=== PATIENT | male | born 2000 | race Two or more races ===

== ENCOUNTER 2024-08-12 10:54 | Emergency (ER) | payer SELFPAY ==
[2024-08-12 11:44] VITALS: BP 124/69; PULSE 93; RESP 18; TEMP 98.1; BMI 21.9
[2024-08-12] MEDS ORDERED: BACITRACIN ZINC 15 GM TUBE TOPICAL OINTMENT ONE ×2 (11:51→11:52)
[2024-08-12] MEDS ORDERED: morphine CARPU-JECT 4 MG/1 ML DISP.SYRIN IVPUSH ONE (11:57)
[2024-08-12] MEDS ORDERED: ACETAMINOPHEN 1000 MG/100 ML BAG IVPB ONE (11:57)
[2024-08-12] MEDS ORDERED: LORazepam 2 MG/ML SDV VIAL ONE ×2 (11:58→12:04)
[2024-08-12] MEDS ORDERED: VANCOMYCIN 1,000 MG in DEXTROSE 5%-WATER - 250 ML IVPB ONE (12:01)
[2024-08-12] MEDS ORDERED: CEFTRIAXONE 1 GM in DEXTROSE 5%-WATER - 100 ML IVPB ONE (12:01)
[2024-08-12] MEDS ORDERED: CEFTRIAXONE 1 G/50 ML PREMIX 50 ML IVPB ONE (12:04)
[2024-08-12] MEDS ORDERED: ACETAMINOPHEN INJECTION 100 ML ONE (12:04)
[2024-08-12] MEDS ORDERED: LACTATED RINGERS SOLUTION 1000 ML INFUS.BAG IV ONE (12:05)
== END 2024-08-12 12:31 | disposition left against medical advice (07) ==
LOC: JER 10:54
DX: L30.9 Dermatitis, unspecified (principal); R45.6 Violent behavior; R21 Rash and other nonspecific skin eruption
CPT/HCPCS: 99283-25

== ENCOUNTER 2024-09-01 21:01 | Inpatient (IN) | payer BC, OTHER ==
[2024-09-02] MEDS ORDERED: ACETAMINOPHEN 325 MG TABLET (FP) ONE (00:22)
[2024-09-02] MEDS: ACETAMINOPHEN 500 MG TABLET (FP) PO ONE (00:30)
[2024-09-02 00:40] LABS: BASO % 0.6 % (0-2.0); EOS % 9.9 % (0-4.5); HEMATOCRIT 35.6 % (35.4-49); HEMOGLOBIN 11.6 GM/dL (11.7-16.9); LYMPH % 13.8 % (8-40); MCHC 32.5 g/dl (32.0-35.9); MEAN CELL VOLUME 80.1 fl (80-96); MEAN PLT VOLUME 7.4 fl (7.5-11.1); MONO % 9.2 % (3.8-10.2); NEUT % 66.5 % (42.8-82.8); PLATELET COUNT 442 10^3/uL (134-434); RBC 4.45 M/mm3 (4.00-5.60); RDW 14.3 % (11.9-15.9); WHITE BLOOD COUNT 14.5 K/mm3 (4.0-10.0)
[2024-09-02 01:12] LABS: POTASSIUM 4.4 mmol/L (3.5-5.1)
[2024-09-02 01:14] LABS: CALCIUM 9.1 mg/dL (8.5-10.1)
[2024-09-02 01:15] LABS: BLOOD UREA NITROGEN 25.1 mg/dL (7-18)
[2024-09-02 01:18] LABS: CREATININE 1.2 mg/dL (0.55-1.3)
[2024-09-02 01:19] LABS: BILIRUBIN,TOTAL 0.2 mg/dL (0.2-1); TOT PROT 6.8 g/dl (6.4-8.2)
[2024-09-02] MEDS ORDERED: PIPERACILLIN/TAZOB 4.5 GM 4.5 GM/100 ML BAG IVPB ONE (01:20)
[2024-09-02] MEDS ORDERED: VANCOMYCIN 1 GM PREMIX (F) 1 GM/200 ML BAG ONE (01:20)
[2024-09-02 01:27] LABS: ERYTHROCYTE SEDIMENTATION RATE 23 mm/hr (0-10)
[2024-09-02] MEDS: PIPERACILLIN/TAZOB 4.5 GM 4.5 GM in DEXTROSE 5%-WATER 100 ML IVPB ONE (01:42)
[2024-09-02] MEDS: HALOPERIDOL LACTATE 5 MG/ML IM ONE (02:47)
[2024-09-02] MEDS: VANCOMYCIN 1,000 MG in DEXTROSE 5%-WATER - 250 ML IVPB ONE (02:47)
[2024-09-02 03:22] LABS: HIV INTERPRETATION NEGATIVE (NEGATIVE)
[2024-09-02] MEDS ORDERED: DOCUSATE SODIUM 100 MG CAPSULE (FP) PO PRN (04:17)
[2024-09-02] MEDS: LACTATED RINGERS SOLUTION 1000 ML INFUS.BAG IV ONE (05:43)
[2024-09-02 07:56] VITALS: BMI 22.8
[2024-09-02] MEDS: PIPERACILLIN/TAZOB 3.375 GM 50 ML IVPB SCH (09:59)
[2024-09-02] MEDS: POLYETHYLENE GLYCOL (HEALTHYLAX) 3350 17 GM PACKET PO SCH (11:00)
[2024-09-02] MEDS: BETAMETHASONE DIPR 0.05% CREAM 15 GM TUBE TP SCH (13:55)
[2024-09-02] MEDS: TRIAMCINOLONE ACET 0.025% CREAM 15 GM TUBE TP SCH (13:56)
[2024-09-02] MEDS: VANCOMYCIN/WATER FOR INJ (PEG) 1,000 MG/200 ML BAG IVPB SCH (13:57)
[2024-09-02] MEDS: ACETAMINOPHEN 325 MG TABLET (FP) PO PRN (13:57)
[2024-09-02] MEDS: PETROLATUM, WHITE 30 GM TUBE TP SCH (13:57)
[2024-09-02] MEDS: HEPARIN NA (PORCINE) 5,000 UNITS/ML 1ML VIAL SQ SCH (13:59)
[2024-09-02] MEDS: ACETAMINOPHEN 500 MG TABLET (FP) PO PRN (14:24)
[2024-09-02] MEDS: PIPERACILLIN/TAZOB 3.375 GM 3.375 GM in DEXTROSE 5%-WATER - 50 ML IVPB SCH (15:14)
[2024-09-02] MEDS: VANCOMYCIN 1,000 MG in DEXTROSE 5%-WATER - 250 ML IVPB SCH (15:16)
[2024-09-02] MEDS: CEFAZOLIN 1 GM in DEXTROSE 5%-WATER - 50 ML IVPB SCH (18:39)
[2024-09-02 20:09] LABS: COCAINE, UR NEGATIVE (NEGATIVE); METHADONE, UR NEGATIVE (NEGATIVE); OPIATES, URI NEGATIVE (NEGATIVE); PHENCYCLIDINE,URINE NEGATIVE (NEGATIVE); URINE AMPHETAMINES NEGATIVE (NEGATIVE); URINE BARBITURATES NEGATIVE (NEGATIVE); URINE BENZODIAZEPINES NEGATIVE (NEGATIVE)
[2024-09-02] MEDS: SENNOSIDES 8.8 MG/5 ML SYRUP PO SCH (21:43)
[2024-09-03] MEDS: ENOXAPARIN NA (PORCINE) 40 MG/0.4 ML DISP.SYRIN SQ SCH (09:32)
[2024-09-03 18:53] VITALS: RESP 18
[2024-09-04 08:39] VITALS: BP 108/57; PULSE 70; TEMP 98.1
== END 2024-09-04 10:16 | disposition home or self-care (01) | DRG 607 ==
LOC: JER 21:01 → JERBED 09-02 01:58 → J5S 09-02 06:28
PROVIDERS: ADMIT Internal Medicine; ATTEND Student in an Organized Health Care Education/Training Program
DX: L30.8 Other specified dermatitis (principal); L97.829 Non-pressure chronic ulcer of other part of left lower leg with unspecified severity; L97.819 Non-pressure chronic ulcer of other part of right lower leg with unspecified severity; Z59.00 Homelessness unspecified; K59.00 Constipation, unspecified
CPT/HCPCS: 36415; 73610-TC-RT-FY; 73630-TC-RT-FY; 80053; 80307; 85025; 85651; 86140; 87040; 87389; 99285-25; J1644